=== PATIENT | female | born 1995 | race Caucasian/White ===

== ENCOUNTER → 2017-10-15 | Outpatient (CLI) | payer BC ==
[~2017-10-15] MED LIST: no home meds
--- NOTE | 2017-10-15 14:38 | REP ---
Clinical: Pain. Technique: AP, lateral, bilateral oblique views of the left wrist. Findings: There is an acute nondisplaced transverse fracture through the scaphoid waist. Remainder examination appears normal. Impression: Acute nondisplaced scaphoid waist fracture. Signed by Collin Sinclair MD 10/15/2017 02:29 P
== END ==
LOC: M WUC 14:01
PROVIDERS: ATTEND Physician Assistant
DX: S62.102A Fracture of unspecified carpal bone, left wrist, initial encounter for closed fracture (principal); X58.XXXA Exposure to other specified factors, initial encounter; Y92.89 Other specified places as the place of occurrence of the external cause; Y93.89 Activity, other specified; Y99.8 Other external cause status